=== PATIENT | male | born 1980 | race African-American/Black ===

== ENCOUNTER 2019-01-04 18:56 | Emergency (ER) | payer OTHER ==
[~2019-01-04] VITALS: Ht 170.2 cm; Wt 78.2 kg
[2019-01-04 19:08] VITALS: BP 122/83; PULSE 62; RESP 16; Ht 170.2 cm; Wt 78.2 kg
[2019-01-04] MEDS ORDERED: KETOROLAC 60 MG INJ IM STA (20:27)
--- NOTE | 2019-01-04 20:37 | ERD ---
ER Documentation Chief Complaint Chief Complaint L knee pain x 2 days, denies injury HPI This is a 38-year-old male who presents ED with nontraumatic left medial knee pain x1 week. Denies any fall or injury to account for pain. Plays basketball pretty regularly. Admits to some difficulty with ambulating and decreased range of motion due to the pain. Denies tingling, numbness, lack sensation, fever, chills, and all other symptoms. ROS All systems reviewed and are negative except as per history of present illness. Medications Home Meds Active Scripts Ibuprofen* (Motrin*) 600 Mg Tab, 600 MG PO Q6, #30 TAB Prov:KELLY WERNER PA-C 01/04/19 Allergies Allergies: Coded Allergies: No Known Allergy (Unverified , 01/04/19) PMhx/Soc Medical and Surgical Hx: pt denies Medical Hx, pt denies Surgical Hx History of Surgery: No Anesthesia Reaction: No Hx Neurological Disorder: No Hx Respiratory Disorders: No Hx Cardiac Disorders: No Hx Miscellaneous Medical Probl: No Hx Alcohol Use: No Hx Substance Use: No Hx Tobacco Use: No Smoking Status: Never smoker FmHx Family History: No diabetes Physical Exam Vitals Vital Signs Date Temp Pulse Resp B/P (MAP) Pulse Ox O2 O2 Flow FiO2 Time Delivery Rate 01/04/19 97.2 62 16 122/83 99 19:08 (96) Physical Exam Physical Exam Vitals signs: Reviewed by me. General: Well developed, well nourished, in no acute distress. Patient is awake and alert. Head: Normocephalic, atraumatic. Eyes: Normal conjunctiva, Pupils PERRLA, EOM intact grossly MSK: No edema, no unilateral swelling, 5/5 strength Lower Extremity -left Skin: No laceration, swelling or evidence of external trauma, no warmth, no redness, Compartments: Soft Motor: Full active range of motion hip/knee/ankle/foot Sensation: Intact to light touch FDWS/MF/LF/P surfaces. Bones: Mild to moderate tenderness palpation along medial knee, nontender pelvis/proximal tibia/ malleoli/foot Joints: No effusion or laxity No calf swelling or calf tenderness, nontender along left popliteal fossa Neurologic: Alert and oriented, moving all extremities, normal speech, no focal weakness, no cerebellar signs. Normal mentation Skin: warm and dry, No rash Psych: Normal mood Results 24 hrs Current Medications Medications Dose Sig/Willie Start Time Status Last (Trade) Ordered Route PRN Stop Time Admin Dose Reason Admin Ketorolac 60 mg ONCE STAT 01/04/19 DC 01/04/19 Tromethamine IM 20:27 20:38 (Toradol) 01/04/19 20:28 Procedures/MDM EKG, MONITORS, & DIAGNOSTIC IMAGING: [place] [address] Radiology Main Line: [phone] DIAGNOSTIC IMAGING REPORT Patient: NICANOR GIRARD : 1980 Age: 38 Sex: M MR #: [id number] DOS: 01/04/192026 Ordering MD: KELLY WERNER PA-C Location: [facility] Room/Bed: PROCEDURE: CR Left Knee CLINICAL INDICATION: Medial knee pain TECHNIQUE: An AP, a tunnel view, a lateral view, and a sunrise view were submitted. COMPARISON: None FINDINGS: Osseous Structures: The osseous elements appear well mineralized and intact. Joint Spaces: The joint spaces are well maintained. A trace joint effusion is noted within the suprapatellar bursa.. Soft Tissues: The soft tissues appear unremarkable. IMPRESSION: 1. Trace suprapatellar joint effusion. 2. Otherwise, unremarkable left knee series. Physician Radu Date Time Electronically viewed and signed by Physician Radu on 01/04/2019 22:33 RH/ CC: KELLY WERNER PA-C [phone] ER COURSE: The patient was given Toradol The medication was well tolerated and the patient reports improvement in sympt oms. The patient was stable throughout ED course. I kept the patient and/or family informed of laboratory and diagnostic imaging results throughout the emergency room course. The patient was promptly evaluated and a treatment plan was devised based on H&P and other data. This plan was discussed with the patient who agreed and had no further questions or concerns prior to discharge. MEDICAL DECISION MAKING: This is a 38-year-old male presents ED with left knee pain x1 week. X-rays remarkable for a trace suprapatellar joint effusion. Patient was offered crutches in the emergency department but refuses stating that he can walk fine t and advised to follow-up with clinical documentation improvement specialist. History and physical examination other data not consistent with emergent processes including but not limited to fracture, dislocation, tendon rupture, ischemia, neurovascular injury, compartment syndrome, septic joint, avascular necrosis, osteomyelitis, necrotizing fasciitis, septic joint, septic arthritis, or other emergent conditions. Patient's vitals are stable and can be managed outpatient with close follow-up. Advised patient to follow-up with primary care in the next 48 hours. Return to ED with any worsening symptoms. DISPOSITION PLAN: We discussed follow up with the patient's primary care doctor within 24 to 48 hours. Patient counseled regarding my diagnostic impression and care plan. Prio r to discharge all questions answered. Pt agrees with treatment plan and understands strict return precautions. Precautionary instructions provided including instructions to return to the ER if not improving or for any worsening or changing symptoms or concerns. SPECIALIST FOLLOW UP RECOMMENDED: Ortho Patient has been advised to follow up with primary care in 1-2 days. Disclaimer: Inadvertent spelling and grammatical errors are likely due to EHR/dictation software use and do not reflect on the overall quality of patient care. Also, please note that the electronic time recorded on this note does not necessarily reflect the actual time of the patient encounter. Departure Diagnosis: Primary Impression: Knee pain Chronicity: acute Laterality: left Qualified Codes: M25.562 - Pain in left knee Additional Impression: Knee effusion Condition: Stable Patient Instructions: Knee Effusion, Knee Pain, Uncertain Cause Referrals: DANILO PORTER MD,MOIRA MONGE MD, JOSEPH P MD FERKEL,MELISSA Crum MD [facility] Additional Instructions: Patient advised to return to the ED immediately for new or worsening symptoms. P atient advised to follow up with primary care provider in the next 24-48 hours. Patient verbalized understanding and agrees with treatment plan and course of action. If patient has no primary care they may follow up with one of the [facility] clinics listed on the following page or one of the options listed below [facility] [address] [address] or [facility] [address] [place] [address] or [facility] [address] [place] [address] KELLY WERNER PA-C Jan 04, 2019 20:37
[2019-01-04] MEDS ORDERED: IBUP-1542 PO (22:38)
== END 2019-01-04 22:51 | disposition home or self-care (01) ==
LOC: FTE 18:56
DX: M25.462 Effusion, left knee (principal)
CPT/HCPCS: 73564; 96372; J1885; Z7502